=== PATIENT | female | born 1985 | race Caucasian/White ===

== ENCOUNTER → 2018-11-28 | Outpatient (REF) | payer OTHER ==
[2018-11-28 13:55] LABS: CPK CREATINE PHOSPHOKINASE 76 U/L (26-192); FREE T4 1.38 NG/DL (0.76-1.46); RHEUMATOID FACTOR QUANT < 10.0 IU/ML (<15.0); TOTAL 25(OH) VITAMIN D 18.4 NG/ML (30.0-100.0)
[2018-11-28 14:49] LABS: HEMOGLOBIN A1c 4.6 %
[2018-11-29 14:04] LABS: VITAMIN B12 LEVEL 487 PG/ML
[2018-12-02 00:06] LABS: ALDOLASE 6.1 U/L (3.3-10.3); ANTINUCLEAR ANTIBODIES DIRECT Negative (Negative); Lyme Disease IgG/IgM Antibodie <0.91 ISR (0.00-0.90); Lyme Disease IgM Ab Quantitati <0.80 index (0.00-0.79); Methylmalonic Acid 171 nmol/L (0-378); VITAMIN B6,PYRIDOXAL PHOSPHATE 10.1 ug/L (2.0-32.8); VITAMIN E(ALPHA TOCOPHEROL) 11.1 mg/L (5.9-19.4); VITAMIN E(GAMMA TOCOPHEROL) 1.3 mg/L (0.7-4.9)
== END ==
LOC: M LABNEURO 10:09
PROVIDERS: ATTEND Psychiatry & Neurology Neurology
DX: E11.9 Type 2 diabetes mellitus without complications (principal); E07.9 Disorder of thyroid, unspecified